=== PATIENT | female | born 1955 | race Caucasian/White ===

== ENCOUNTER 2023-12-13 10:20 | Emergency (ER) | payer MEDICARE, OTHER, SELFPAY ==
[2023-12-13 10:22] VITALS: BP 135/75
[2023-12-13 10:33] VITALS: BMI 33.1
[2023-12-13 10:44] VITALS: BP 119/65
--- NOTE | 2023-12-13 10:49 | ED.GENMED ---
History of Present Illness
General
Chief Complaint: Abdominal Pain
Source: patient and spouse
Exam Limitations: none
Time Seen by Provider: 12/13/23 10:28
Nursing documentation reviewed up to this point in time: agreed with
Travel History
Have you had any contact with someone who has COVID-19?: No
Do you have any symptoms of coronavirus? Fever > 100 degrees, chills, cough, shortness of breath, sore throat, loss of taste or smell, muscle aches, or headache?: No
History of Present Illness
History of Present Illness:
68-year-old female with no reported chronic medical history who presents to the emergency room with her for evaluation of abdominal pain. Patient reports onset of symptoms evening and they have been intermittent since that time.
She reports pain in the right upper quadrant radiates towards the flank. No clear triggering or relieving factors noted; not significantly worse with meals. She reports associated nausea and multiple results of vomiting. She says she has had some
nonbloody diarrhea. She says she has had intermittent fevers with a Tmax of 103 �F on Tuesday. She says that symptoms did not seem to be improving and she was concerned it could be a gallbladder problem so she came to the emergency room to be
assessed. Denies any dysuria, hematuria, change in urinary frequency. She denies having had similar symptoms in the past. She denies any prior surgical history. She denies any known history of gallstones. She denies any other complaints.
Review of Systems
Review of Systems
All Other Systems: ROS reviewed and negative except as documented in HPI and ROS
Constitutional: Reports fever and chills
EENT: Denies sore throat or runny nose
Respiratory: Denies cough or trouble breathing
Cardiac: Denies chest pain or palpitations
ABD/GI: Reports abdominal pain, nausea, vomiting and diarrhea; Denies bloody stools
: Denies dysuria, frequency or flank pain
Musculoskeletal: Denies neck pain or back pain
Neurological: Denies headache
Phy Exam
Physical Exam
Physical Exam:
General: Awake, alert, oriented x3; no acute distress
Head: Normocephalic, atraumatic
Eyes: Conjunctiva normal, sclera anicteric
Throat: Airway intact, handling secretions
Neck: Trachea midline, supple without meningismus
Lungs: Clear to auscultation bilaterally, no wheezing, rales, rhonchi
Heart: Regular rate and rhythm, no murmurs, gallops, or rubs
Abd: Soft, non distended, diffusely tender to palpation maximal in the right upper quadrant
Back: No CVA tenderness
Neuro: Cranial nerves grossly intact, speech fluid
Skin: no rash
Extremities: No edema in extremities, equal pulses in all extremities
Scores
Heart Failure Risk
Heart Failure Risk Score: Not Applicable
Heart Score for Chest Pain Patients
STEMI patient?: Not applicable
Withdrawal Assessment of Alcohol
Withdrawal Assessment Completed?: Not applicable
Course
Orders/Labs/Results
Orders:
Orders
12/13/23 10:39
Basic Metabolic Panel Urgent
COVID-19 Antigen Urgent
Source: Nasal Swab
Complete Blood Count/With Diff Urgent
Lipase Urgent
Influenza A+B Rapid Molecular Urgent
SEBASTIAN Source: Nasal Swab
Specimen Description:
12/13/23 10:47
US Abdomen Complete/Upper Urgent
Comment:
Reason For Exam: RUQ abd pain, N/V
12/13/23 10:55
0.9% Sodium Chloride 1000 ml [Nss] 1,000 ml IV BOLUS
12/13/23 12:00
LFT [[id number]] Urgent
12/13/23 12:23
CT Abd/pelvis W Iv Cont Urgent
Comment:
Reason For Exam: upper abd pain with N/V
12/13/23 13:13
Urinalysis Reflex To Culture Urgent
Date Specimen was Collected: 12/13/23
Time Specimen was Collected: 13:12
Urine Microscopic Reflex Cult Urgent
12/13/23 13:58
US Pelvis W Transvag Combined Urgent
Reason For Exam: thickened endometrium
12/13/23 14:05
Ciprofloxacin HCl [Cipro] 500 mg PO ONCE ONE
MetroNIDAZOLE [Flagyl] 500 mg PO NOW STA
Abnormal Lab Results
12/13/23 12/13/23 12/13/23
10:39 12:00 13:13
Abs Immat Gran (auto) 0.1 H 10^3/uL
(0-0.05)
Absolute Neuts (auto) 6.9 H 10^3/uL
(1.4-6.5)
Absolute Monos (auto) 1.1 H 10^3/uL
(0.1-0.6)
Lymphocytes % 14.0 L %
(20.5-51.1)
Monocytes % 11.5 H %
(1.7-9.3)
Glucose 111 H mg/dl
(70-99)
Total Protein 5.6 L g/dl
(6.3-8.2)
Albumin 3.1 L g/dl
(3.5-5.0)
Ur Occult Blood Reflex Trace A
(Negative)
Leukocyte Esterase Rfl Trace A
(Negative)
12/13/23 10:39
12/13/23 10:39
Vital Signs
Initial and Last Documented VS:
Initial Vital Signs
Temp Pulse Resp BP Pulse Ox
36.6 C 91 16 135/75 98
12/13/23 10:22 12/13/23 10:22 12/13/23 10:22 12/13/23 10:22 12/13/23 10:22
Last Documented Vital Signs
Temp Pulse Resp BP Pulse Ox
36.6 C 76 15 113/67 98
12/13/23 10:22 12/13/23 14:30 12/13/23 14:30 12/13/23 13:00 12/13/23 10:22
MDM/Problems Addressed
Differential Diagnosis Includes:
Gastritis, cholecystitis, cholelithiasis, choledocholithiasis, pancreatitis, enteritis/gastroenteritis
MDM/Problems Addressed:
68-year-old female presents to the emergency room for evaluation of right upper quadrant abdominal pain associate with nausea, vomiting, diarrhea and fever over the past few days. Vital signs are normal. Exam as above. Plan to place an IV check
labs including CBC and CMP, lipase. Check urinalysis. Check viral swabs. Will send for right quadrant ultrasound start. Offered pain and nausea medication but patient declined. Will provide some IV fluids. Will monitor closely reassess at the
above.
Initial labs reviewed: CBC unremarkable, CMP partially hemolyzed but basic chemistry is normal�will need to redraw for LFTs. Lipase is normal. CMP partially hemolyzed but basic chemistry is normal�will need to redraw for LFTs. Lipase is normal.
Abdominal ultrasound no acute pathology�no gallstones, no cholecystitis, no biliary ductal dilation. Will send for CT of the abdomen pelvis. Continue to monitor.
CT of the abdomen pelvis shows findings consistent with colitis which is consistent with patient's clinical picture. Given extent of colitis on CT will plan to treat with antibiotics�ciprofloxacin and Flagyl. She has no signs of sepsis she has not
had diarrhea here. Well-hydrated and is feeling generally well on reassessment. Her vital signs have been stable. No clear indication for admission I think she is stable for discharge on oral antibiotics with outpatient PCP and GI follow-up. She
did have some questionable endometrial thickening on CT and follow-up ultrasound recommended�will perform here prior to discharge. Patient very comfortable with this plan.
Follow-up ultrasound does show findings concerning for endometrial cancer. Discussed with oncology patient can call first thing tomorrow to follow-up with them in the office. I had a long discussion with the patient explained likely acute
diagnosis of colitis and plan for antibiotic treatment which she is comfortable with. I also explained incidental finding concerning for malignancy and need for close [facility] oncology follow-up. She indicated understanding. We spoke about return
precautions all questions were answered.
Chronic conditions affecting care:
Obesity�high risk for gallstones
*Radiology
Radiology exam reviewed: radiology read reviewed
*Pulse Oximetry
Patient hypoxic: no
*Critical Care Note
Total Time (30-74mins, 75-104mins- exclusive of procedures): Not Applicable
Data Reviewed
Source: patient and spouse
Patient Management
Discussion with other providers: Radiologist (Discussed with radiologist)
ED Attending Note
-
Portions of this chart may have been created with voice recognition software.� Occasional wrong word or��sound alike� substitutions may have occurred due to the inherent limitations of voice recognition software.
Discharge Plan
Departure
Patient Disposition: Home (Routine Discharge)
Date of Disposition: 12/13/23
Time of Disposition: 15:38
Patient with high blood pressure during this ER visit?: No
Discharge Problem:
Colitis, Thickened endometrium
Instructions: Colitis (DC)
Prescriptions:
New
ciprofloxacin HCl [Cipro] 500 mg tablet
500 mg PO BID Qty: 20 0RF
metronidazole 500 mg tablet
500 mg PO TID Qty: 30 0RF
No Action
ibuprofen [Advil] 200 mg Tablet
200 mg PO Q6H PRN (Reason: mild pain/ headaches)
aspirin 81 mg Tablet,Chewable
81 mg PO HS
bisacodyl [Dulcolax (bisacodyl)] 5 mg Tablet,Delayed Release (Dr/Ec)
5 mg PO DAILYPRN PRN (Reason: consitpation)
Excedrin Migraine 250-250-65 mg Tablet
1 tab PO DAILYPRN PRN (Reason: pressure headaches)
Primatene Mist 0.125 mg/actuation Hfa Aerosol Inhaler
1 puff INHALATION Q6H PRN (Reason: allergy symptoms)
Referrals:
Natasha Dhillon MD [Active] - Call in 1-3 days for appt (GI)
Lucas Shah MD [Active] - Call in 1-3 days for appt ([facility]/Oncology)
Activity Restrictions/Additional Instructions:
You are seen in the emergency room for abdominal discomfort and nausea, vomiting, diarrhea. You are found to have colitis which we are treating with antibiotics. You should follow-up with the GI doctor for reassessment after your course of
antibiotics. You were incidentally found to have findings on your CT (which were followed up with an ultrasound) that are concerning for endometrial cancer. You must call the [facility]/oncologist (Dr. Shah) first thing tomorrow morning to schedule a
follow-up appointment so that you can have this issue further evaluated and addressed.
Thank you for visiting the Emergency Department at [facility].
1. Please schedule a follow up appointment as directed. Call first thing tomorrow morning to make an appointment.
2. If indicated, please take your medications as instructed and indicated on discharge paperwork.
3. If any of your symptoms do not improve, or persist, or become more severe within 6-12 hours, please return to the emergency department for further care.
4. Please return to the emergency department if you develop a headache, neck pain/stiffness, fever greater than 100.4F, chest pain, shortness of breath, persistent nausea, vomiting, slurred speech, difficulty walking, numbness/tingling, weakness,
signs of infection or any other symptoms that are worrisome to you.
Please call [phone] if you have any questions.
Interventions
Interventions:
*Risk Screen - Suicide Last Done: 12/13/23 10:31
*General Assessment Last Done: 12/13/23 10:31
*Neglect/Abuse Screening Last Done: 12/13/23 10:31
ED- Fall Risk Assessment Last Done: 12/13/23 10:34
*ED COVID-19 Vaccine History Last Done: 12/13/23 10:31
JO-Ztyagu-[id number] Assessment Last Done: 12/13/23 10:27
Discharge Date and Time
Print Language: LAO
[2023-12-13] MEDS: NSS 1000 IV (10:56)
[2023-12-13 10:58] LABS: % Basophils 0.7 % (0-2); % Eosinophils 0.8 % (0-6); % Immature Granulocytes 0.5 % (0-0.5); % Monocytes 11.5 % (1.7-9.3); % Neutrophils 72.5 % (42.2-75.2); Absolute Basophils 0.1 10^3/uL (0-0.2); Absolute Eosinophils 0.1 10^3/uL (0-0.7); Absolute Immature Granulocytes 0.1 10^3/uL (0-0.05); Absolute Lymphocytes 1.3 10^3/uL (1.2-3.4); Absolute Monocytes 1.1 10^3/uL (0.1-0.6); Absolute Neutrophils 6.9 10^3/uL (1.4-6.5); Hematocrit 43.6 % (37.0-47.0); Hemoglobin 15.2 g/dL (12.0-16.0); Mean Corp Hgb Conc. 34.9 g/dL (33.0-37.0); Mean Corpuscular Hgb 30.9 pg (27.0-31.0); Mean Corpuscular Volume 88.6 fL (81.0-99.0); Mean Platelet Volume 8.8 fL (7.4-10.4); Nucleated Red Blood Cells % 0 %; Platelet Count 272 10^3/uL (130-400); Red Blood Cell Count 4.92 10^6/uL (4.20-5.40); Red Cell Dist. Width 12.6 % (11.5-14.5); White Blood Cell Count 9.6 10^3/uL (4.8-10.8)
[2023-12-13 11:00] VITALS: BP 117/71
[2023-12-13 11:21] LABS: Blood Urea Nitrogen 11 mg/dl (7-17); Carbon Dioxide 26 mmol/L (22-30); Chloride 103 mmol/L (98-107); Estimated Creatinine Clearance 75 ml/min; Glucose 111 mg/dl (70-99); Lipase 83 U/L (23-300); Sodium 135 mmol/L (135-145); eGFR > 60.00
[2023-12-13 11:23] LABS: COVID-19 Antigen Negative (Negative)
[2023-12-13 12:37] LABS: ALT (SGPT) 25 U/L (0-35); AST (SGOT) 19 U/L (14-36); Albumin 3.1 g/dl (3.5-5.0); Alkaline Phosphatase 74 U/L (38-126); Direct Bilirubin 0.3 mg/dl (0.0-0.4); Total Bilirubin 0.5 mg/dl (0.2-1.3); Total Protein 5.6 g/dl (6.3-8.2)
[2023-12-13 12:39] VITALS: BP 112/59
[2023-12-13 13:00] VITALS: BP 113/67
[2023-12-13 13:29] LABS: Urine Albumin Negative (Neg - Trace); Urine Bilirubin Negative (Negative); Urine Character Clear (Clear); Urine Color Yellow; Urine Glucose Negative (Negative); Urine Ketone Negative (Negative); Urine Leukocyte Trace (Negative); Urine Nitrite Negative (Negative); Urine Occult Blood Trace (Negative); Urine Specific Gravity 1.015 (<1.030); Urine Urobilinogen Negative (Neg - 1+)
[2023-12-13 14:13] LABS: Urine Mucus Few; Urine Red Blood Cell 0-2 /HPF (0-2); Urine White Cell 0-2 /HPF (0-5)
[2023-12-13] MEDS: CIPRO 500 MG PO (14:21)
[2023-12-13] MEDS: FLAGYL 500 MG PO (14:21)
== END 2023-12-13 15:47 | disposition home or self-care (01) ==
LOC: EMR 10:20
PROVIDERS: EMERGENCY PHYSICIAN Emergency Medicine
DX: K52.9 Noninfective gastroenteritis and colitis, unspecified (principal); R93.89 Abnormal findings on diagnostic imaging of other specified body structures; Z78.0 Asymptomatic menopausal state
CPT/HCPCS: 99284; 96360; 74177; 76700; 76830; 76856; 80048; 80076; 81003; 81015; 83690; 85025; 87502; 87811; Q9967